=== PATIENT | male | born 1980 | race Caucasian/White ===

== ENCOUNTER 2020-08-21 22:07 | Emergency (ER) | payer BC ==
[2020-08-22 01:24] LABS: HEMOGLOBIN 17.1 gm/dl (14.0-17.5); RED BLOOD COUNT 5.7 M/UL (4.20-5.50); WHITE BLOOD COUNT 10.9 K/UL (4.5-11.0)
[2020-08-22 02:13] LABS: BUN/CREATININE RATIO 19 (0-10)
[2020-08-22] MEDS ORDERED: FLOMAX 0.4 MG0.4 MG PO (03:44)
[2020-08-22] MEDS ORDERED: TORADOL 10 MG T10 MG PO (03:44)
[2020-08-22] MEDS ORDERED: ZOFRAN ODT 4 MG4 MG PO (03:44)
== END 2020-08-22 04:00 | disposition home or self-care (01) ==
LOC: ER1 22:07
PROVIDERS: Physician Assistant
DX: N13.2 Hydronephrosis with renal and ureteral calculous obstruction (principal); F17.210 Nicotine dependence, cigarettes, uncomplicated; Z91.013 Allergy to seafood
CPT/HCPCS: 80053; 81001; 83690; 85025; 87086; 96372; 99284; J0696; Q9967